=== PATIENT | male | born 1970 | race Caucasian/White ===

== ENCOUNTER 2019-02-16 08:22 | Day surgery (SDC) | payer OTHER ==
[~2019-02-16] VITALS: Ht 180.3 cm; Wt 84.2 kg
[~2019-02-16 08:22] MED LIST: LISINOPRIL; NORVASC; PANTOPRAZOLE
[2019-02-16] MEDS ORDERED: PROPOFOL 40 ML ONE (08:40)
[2019-02-16 09:03] VITALS: Ht 180.3 cm; Wt 84.2 kg
[2019-02-16 09:20] VITALS: BP 144/83; PULSE 67; RESP 16
[2019-02-16 09:56] VITALS: BP 136/85; PULSE 54; RESP 13
[2019-02-16 10:14] VITALS: BP 132/86; PULSE 62; RESP 14
== END 2019-02-16 14:24 | disposition home or self-care (01) ==
LOC: GIL 08:22
PROVIDERS: ATTEND Internal Medicine Gastroenterology
DX: D12.5 Benign neoplasm of sigmoid colon (principal); K64.8 Other hemorrhoids; K21.9 Gastro-esophageal reflux disease without esophagitis; K29.50 Unspecified chronic gastritis without bleeding; I10 Essential (primary) hypertension
CPT/HCPCS: 43239; 45380; 88305; 88312; Z7610